=== PATIENT | female | born 1995 | race Two or more races ===

== ENCOUNTER 2025-09-25 05:56 | Emergency (ER) | payer MEDICAID, SELFPAY ==
[2025-09-25 05:58] VITALS: BMI 37.2
[2025-09-25 06:06] VITALS: BP 107/67; PULSE 88; RESP 16; TEMP 36.9; O2SAT 98
[2025-09-25] MEDS: ONDANSETRON ODT 4 MG TABRAP PO (06:32)
[2025-09-25] MEDS: METOCLOPRAMIDE INJ 5 MG/ML VIAL 2 ML 10 MG IM (06:34)
[2025-09-25] MEDS: LOPERAMIDE 2 MG CAPSULE 4 MG PO (06:34)
--- NOTE | 2025-09-25 06:44 | EDNOTE_ITS ---
Nausea/Vomit./Diarrhea-RME/HPI General Chief complaint: Nausea/Vomiting/Diarrhea Stated complaint: VOMITING,DIARRHEA Time Seen by Provider: 09/25/25 06:15 Arrival date/time: 09/25/25 05:56 30-year-old female presents to the emergency department today for complaints of nausea vomiting and diarrhea which began approximately 6 hours ago. Patient reports no fever nausea vomiting reports no chance of Limitations: no limitations Related Data Previous Rx's ?Medication ?Instructions ?Recorded naproxen 500 mg tablet (Naprosyn) 500 mg PO BID PRN pa in #14 tabs 03/13/24 tramadol 50 mg tablet 50 mg PO Q8H PRN pain #14 ta bs 03/13/24 loperamide 2 mg capsule (Imodium 2 mg PO Q6H PRN loose stool #14 09/25/25 A-D) caps ondansetron 4 mg disintegrating 4 mg PO Q8H PRN nausea and 09/25/25 tablet vomiting #10 tabs Allergies Allergy/AdvReac Type Severity Reaction Status Date / Time No Known Allergies Allergy Verified 09/25/25 06:00 Review of Systems Review of Systems Systems Reviewed: All systems reviewed, normal except as documented Constitutional Constitutional: Reports system reviewed and no additional complaints, except as documented, Denies fever(s) and Denies headache(s) Eyes Eyes: Reports system reviewed and no additional complaints, except as documented and Denies blurry vision ENT Ears, Nose, Mouth, and Throat: Reports system reviewed and no additional complaints, except as documented, Denies headache(s), Denies nasal congestion and Denies nasal discharge Cardiovascular Cardiovascular: Reports system reviewed and no additional complaints, except as documented, Denies chest pain and Denies dyspnea Respiratory Respiratory: Reports system reviewed and no additional complaints, except as documented, Denies chest congestion, Denies cough and Denies dyspnea Gastrointestinal Gastrointestinal: Reports system reviewed and no additional complaints, except as documented, Denies abdominal pain, Denies hematochezia, Reports loose stools, Denies melena, Reports nausea and Reports vomiting Integumentary/Breasts Skin/Breast: Reports system reviewed and no additional complaints, except as documented and Denies rash Neurologic Neurologic: Reports system reviewed and no additional complaints, except as documented, Reports as per HPI and Denies headache(s) Past Medical History Past Medical History NEUROLOGIC: Negative Neurological Disorders or Seizures CARDIAC: Negative Cardiac Disorders or Congestive Heart Failure RESPIRATORY: Negative Chronic Obstructive Pulmonary Disease (COPD) GASTROINTESTINAL: Positive Gastrointestinal Disorders (GASTRITIS) and Gastroesophageal Reflux Disease GENITOURINARY: Negative Genitourinary Disorders or Renal Disease REPRODUCTIVE: Positive Previous Pregnancies MUSCULOSKELETAL: Negative Musculoskeletal Disorders ENDOCRINE: Negative Endocrine Disorders, Diabetes Mellitus Type 1 or Diabetes Mellitus Type 2 HEMATOLOGIC: Negative Blood Disorders OTHER HISTORY: Positive Hospitalization (CHILDBIRTH); Negative Autoimmune Disease, Down Syndrome, Developmental Delay, Shingles, Falls, Blood Transfusions, Anesthesia Reactions or Cancer Surgical History SURGICAL: Negative Section Social History SMOKING STATUS: Never smoker SUBSTANCE USE: does not use ED Exam General Limitations: Present no limitations General appearance: Present alert and in no apparent distress Head Head exam: Present atraumatic, normocephalic and normal inspection Eye Eye exam: Present normal appearance, PERRL and EOMI; Absent conjunctival injection ENT ENT exam: Present normal exam, normal oropharynx and mucous membranes moist Neck Neck exam: Present normal inspection, full ROM and trachea midline Chest Chest inspection: Present normal inspection and symmetric chest wall rise Respiratory Respiratory exam: Present normal lung sounds bilaterally; Absent respiratory distress Cardiovascular Cardiovascular exam: Present regular rate, normal rhythm and normal heart sounds Abdominal Exam Abdominal exam: Present soft and normal bowel sounds; Absent distention, tenderness, guarding, rebound, rigidity, Castaneda's sign, Rovsing's sign or tenderness at McBurney's Point Abdominal tenderness: Absent RUQ or RLQ Extremities Exam Extremities exam: Present normal inspection and full ROM Back Exam Back exam: Present normal inspection and full ROM Neurological Exam Neurological exam: Present alert, oriented X3 and CN II-XII intact Psychiatric Psychiatric exam: Present normal affect and normal mood Skin Skin exam: Present warm, dry, intact and normal color Course Quality Measures none Orders Category Date Time Status Loperamide [Imodium] Med 09/25/25 06:19 Discontinued 4 mg PO X1 ONE Metoclopramide Inj [Reglan Inj] Med 09/25/25 06:19 Discontinued 10 mg IM X1 ONE Ondansetron Odt [Zofran Odt] Med 09/25/25 06:19 Discontinued 4 mg PO X1 ONE Vital Signs Vital signs: Vital Signs Temperature 98.5 F 09/25/25 06:06 Pulse Rate 88 09/25/25 06:06 Respiratory Rate 16 09/25/25 06:06 Blood Pressure 107/67 09/25/25 06:06 Pulse Oximetry (%) 98 09/25/25 06:06 Oxygen Delivery Method Room Air 09/25/25 06:06 O2 saturation 98% room air within normal limits Nausea/Vomiting/Diarrhea MDM Narrative MDM Narrative:: 30-year-old female presents to the emergency department today for complaints of nausea vomiting and diarrhea which began approximately 6 hours ago. Patient reports no fever nausea vomiting reports no chance of On exam patient well-appearing patient does not appear ill or toxic no acute distress Symptoms consistent with enteritis Differentials include but not limited to viral enteritis, diverticulitis, influenza Patient given a dose of Imodium and Reglan here Explained to the patient this is very early on the illness she symptoms persist or worsen she must return for reevaluation patient states understanding Patient data External records reviewed:: [facility] previous records Clinical information provided by:: patient Social determinants that could affect healthcare access:: none Patient has the following chronic illnesses:: None How is presenting disease/condition affected by chronic disease/condition?: no chronic disease Evaluation data The following diagnostics were reviewed and interpreted by me:: other (specify) (N/A) Lab and/or radiology exams considered but not ordered:: Considered not ordered Interpretation Summary: N/A Medications / Prescriptions Medications / Prescriptions considered but not ordered:: Given Medication administrations:: Medication Administration History Discontinued Medications Loperamide HCl (Loperamide 2 Mg Capsule) 4 mg PO X1 ONE Stop: 09/25/25 06:20 Last Admin: 09/25/25 06:34 Dose: 4 mg Documented By: CVL Metoclopramide HCl (Metoclopramide Inj 5 Mg/Ml Vial 2 Ml) 10 mg IM X1 ONE; Protocol Stop: 09/25/25 06:20 Last Admin: 09/25/25 06:34 Dose: 10 mg Documented By: CVL Ondansetron HCl (Ondansetron Odt 4 Mg Tabrap) 4 mg PO X1 ONE; Protocol Stop: 09/25/25 06:20 Last Admin: 09/25/25 06:32 Dose: 4 mg Documented By: CVL Given Consultations Consultation(s) initiated? (list below): No Diagnosis Nausea Differential Diagnosis: traveler's diarrhea, food poisoning and gastroenteritis Most likely diagnosis given after review of the tests above:: Enteritis Admission Indicated Admission indicated?: not indicated Admission Request Was there a request for admission?: No Disposition Plan Disposition Plan: Discharge Discharge Attestation Discharge Attestation: The patient and all family members were given an opportunity to ask questions and understood the discharge instructions. Discharge instructions specifically effects, indications for sooner follow up or return to the emergency department, and the expected course of current diagnosis. Patient condition: Stable Discharge Plan Plan Patient Disposition: HOME (Self Care) Discharge Disposition comment: stable Prescriptions/Referrals Prescriptions/Med Rec: New loperamide [Imodium A-D] 2 mg capsule 2 mg PO Q6H PRN (Reason: loose stool) Qty: 14 0RF ondansetron 4 mg tablet,disintegrating 4 mg PO Q8H PRN (Reason: nausea and vomiting) Qty: 10 0RF No Action naproxen [Naprosyn] 500 mg tablet 500 mg PO BID PRN (Reason: pain) Qty: 14 0RF tramadol 50 mg tablet 50 mg PO Q8H PRN (Reason: pain) Qty: 14 0RF Problem List Clinical Impression: Other viral enteritis Patient/Caregiver Discharge Instructions Education Materials: Viral Gastroenteritis Additional Instructions: Please follow up with your primary care doctor in the next 24-48hrs for any worsening symptoms return here immediately Print Language: Kinyarwanda Stand Alone Forms: Alison Award Info., Work/School Release, Patient Portal Info Letter PA/PRE SALES TECH[employer]ICAL ENGINEER Supervising Physician TERRY/SINDI Supervising Physician: Dr. Lynch
[2025-09-25 06:45] VITALS: RESP 16
== END 2025-09-25 06:46 | disposition home or self-care (01) ==
PROVIDERS: Emergency Provider Family Medicine
DX: A08.39 Other viral enteritis (principal)
CPT/HCPCS: 96372; 99282; J2765; Q0162; A9270